=== PATIENT | female | born 2000 | race Caucasian/White ===

== ENCOUNTER 2021-12-29 11:03 | Emergency (ER) | payer SELFPAY ==
[~2021-12-29] VITALS: Ht 160 cm; Wt 81.6 kg
[2021-12-29 11:35] LABS: BILIRUBIN,URINE NEGATIVE (NEGATIVE); CLARITY,URINE SL CLOUDY; COLOR,URINE YELLOW; GLUCOSE, URINE (UA) NEGATIVE (NEGATIVE); KETONES,URINE NEGATIVE (NEGATIVE); LEUKOCYTE ESTERASE ,URINE TRACE (NEGATIVE); NITRITE,URINE NEGATIVE (NEGATIVE); PH,URINE 6.5 (5-9); PROTEIN,URINE NEGATIVE (NEGATIVE)
[2021-12-29 11:46] LABS: BACTERIA,URINE TRACE /HPF; RBC,URINE 0-2 /HPF; WBC,URINE RARE /HPF
--- NOTE | 2021-12-29 11:48 | ED GU-Female ---
General Chief Complaint: - Reproductive Stated Complaint: APPROX 7 WKS PREG/VAG BLEEDING Source: patient Exam Limitations: no limitations History of Present Illness Date Seen by Provider: December 29, 2021 Time Seen by Provider: 11:46 Initial Comments Patient is a 21-year-old female who presents ED with vaginal bleeding. She states her last menstrual cycle was end of October. She does take an oral contraceptive. She states she had a negative test 2 weeks ago. Started having some lower abdominal cramping yesterday. Few episodes of diarrhea. She reports frequent urination without dysuria. No vaginal discharge. Had a very small clot in very small amount of bright red tinge blood this morning. She has had 2 successful pregnancies in the past. She is unsure if she started her menstrual cycle or she is currently . Lower abdominal cramping has stayed the same without increasing pain or any radiation. She denies of any chest pain, vomiting, nausea, breast tenderness, shortness of breath, headache, dizziness, sore throat. She reports a mild cough since yesterday. Allergies and Home Medications Patient Home Medication List Home Medication List Reviewed: Yes Review of Systems Review of Systems Constitutional: No chills, No diaphoresis, No fever, No malaise, No weakness EENTM: No ear pain, No blurred vision, No double vision, No mouth pain, No mouth swelling, No throat pain, No throat swelling Respiratory: cough Cardiovascular: No edema Gastrointestinal: abdominal pain; No diarrhea, No nausea, No vomiting Musculoskeletal: No back pain, No joint pain, No muscle pain, No muscle stiffness Skin: No change in color, No change in hair/nails All Other Systemes Reviewed Negative Unless Noted: Yes Past Aokftff-Mghuzp-Tjsxif Hx Patient Social History Tobacco Use?: Yes Tobacco type used: Cigarettes Substance use?: No Alcohol Use?: No Pt feels they are or have been: No Physical Exam Vital Signs Vital Signs - First Documented 12/29/21 11:20 Temp 37.0 Pulse 89 Resp 16 B/P (MAP) 128/83 (98) O2 Delivery Room Air Capillary Refill : Height, Weight, BMI Height: '" Weight: lbs. oz. kg; BMI Method: General Appearance: WD/WN, no apparent distress HEENT: PERRL/EOMI, normal ENT inspection, TMs normal, pharynx normal Neck: non-tender, full range of motion, supple Cardiovascular: regular rate, rhythm, no edema, no gallop, no JVD Respiratory: chest non-tender, lungs clear, normal breath sounds, no respiratory distress, no accessory muscle use Gastrointestinal: normal bowel sounds, soft, no organomegaly, tenderness (Lower bilateral abdominal tenderness on palpation. 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, no motor/sensory deficits, alert, normal mood/affect Progress/Results/Core Measures Suspected Sepsis SIRS Temperature: Pulse: Respiratory Rate: Laboratory Tests 12/29/21 11:30: White Blood Count 6.8 Blood Pressure / Mean: Laboratory Tests 12/29/21 11:30: Creatinine 0.73, Platelet Count 260, Total Bilirubin 0.5 Results/Orders Lab Results Laboratory Tests Test 12/29/21 11:25 12/29/21 11:30 Range/Units Urine Color YELLOW Urine Clarity SL CLOUDY Urine pH 6.5 5-9 Urine Specific [place] 1.025 H 1.016-1.022 Urine Protein NEGATIVE NEGATIVE Urine Glucose (UA) NEGATIVE NEGATIVE Urine Ketones NEGATIVE NEGATIVE Urine Nitrite NEGATIVE NEGATIVE Urine Bilirubin NEGATIVE NEGATIVE Urine Urobilinogen 0.2 < = 1.0 MG/DL Urine Leukocyte Esterase TRACE H NEGATIVE Urine RBC (Auto) 3+ H NEGATIVE Urine RBC 0-2 /HPF Urine WBC RARE /HPF Urine Squamous Epithelial Cells 5-10 /HPF Urine Crystals NONE /LPF Urine Bacteria TRACE /HPF Urine Casts NONE /LPF Urine Mucus SMALL H /LPF Urine Culture Indicated NO Urine Test NEGATIVE NEGATIVE White Blood Count 6.8 4.3-11.0 10^3/uL Red Blood Count 4.96 3.80-5.11 10^6/uL Hemoglobin 14.3 11.5-16.0 g/dL Hematocrit 42 35-52 % Mean Corpuscular Volume 86 80-99 fL Mean Corpuscular Hemoglobin 29 25-34 pg Mean Corpuscular Hemoglobin Concent 34 32-36 g/dL Red Cell Distribution Width 13.6 10.0-14.5 % Platelet Count 260 130-400 10^3/uL Mean Platelet Volume 10.3 9.0-12.2 fL Immature Granulocyte % (Auto) 0 % Neutrophils (%) (Auto) 60 42-75 % Lymphocytes (%) (Auto) 29 12-44 % Monocytes (%) (Auto) 8 0-12 % Eosinophils (%) (Auto) 3 0-10 % Basophils (%) (Auto) 0 0-10 % Neutrophils # (Auto) 4.1 1.8-7.8 10^3/uL Lymphocytes # (Auto) 2.0 1.0-4.0 10^3/uL Monocytes # (Auto) 0.6 0.0-1.0 10^3/uL Eosinophils # (Auto) 0.2 0.0-0.3 10^3/uL Basophils # (Auto) 0.0 0.0-0.1 10^3/uL Immature Granulocyte # (Auto) 0.0 0.0-0.1 10^3/uL Sodium Level 143 135-145 MMOL/L Potassium Level 3.6 3.6-5.0 MMOL/L Chloride Level 107 98-107 MMOL/L Carbon Dioxide Level 21 21-32 MMOL/L Anion Gap 15 H 5-14 MMOL/L Blood Urea Nitrogen 11 7-18 MG/DL Creatinine 0.73 0.60-1.30 MG/DL Estimat Glomerular Filtration Rate 119 BUN/Creatinine Ratio 15 Glucose Level 97 70-105 MG/DL Calcium Level 9.4 8.5-10.1 MG/DL Corrected Calcium 9.1 8.5-10.1 MG/DL Total Bilirubin 0.5 0.1-1.0 MG/DL Aspartate Amino Transf (AST/SGOT) 16 5-34 U/L Alanine Aminotransferase (ALT/SGPT) 16 0-55 U/L Alkaline Phosphatase 57 40-136 U/L Total Protein 7.7 6.4-8.2 GM/DL Albumin 4.4 3.2-4.5 GM/DL Lipase 15 8-78 U/L My Orders Orders - ANTON COMBS Ua Culture If Indicated (12/29/21 11:19) Hcg,Qualitative Urine (12/29/21 11:19) Urine Bedside (12/29/21 11:22) Chlamydia Trachomatis Urine (12/29/21 11:26) Neis Rajendra Dna Urine Test (12/29/21 11:26) Cbc With Automated Diff (12/29/21 11:40) Comprehensive Metabolic Panel (12/29/21 11:40) Lipase (12/29/21 11:40) Vital Signs/I&O 12/29/21 11:20 Temp 37.0 Pulse 89 Resp 16 B/P (MAP) 128/83 (98) O2 Delivery Room Air Capillary Refill : Departure Communication (PCP) Patient presents ED for vaginal bleeding. Small clot with bright red tinge of blood this morning. Some lower abdominal cramping. Scheduled to start her menstrual cycle at this time. She missed her last menstrual cycle had a negative test 2 weeks ago. Bedside was negative. Urine was negative. Urinalysis negative for infection. She does report some frequent uri nation. Some lower abdominal cramping but does not appear in acute distress. Suprapubic tenderness. No vaginal discharge or concern for sexual transmitted infection. Patient lab work was otherwise unremarkable. Normal hemoglobin and white blood count. No right lower quadrant tenderness or right upper quadrant tenderness. She does not appear in acute distress. Rule out ectopic with negative . No surgical abdomen. Likely the start of her menstrual cycle. She is currently on oral contraceptives. Recommend anti- inflammatories for pain. If any worsening symptoms such as worsening pain, heavy abnormal bleeding to return back to ED for further evaluation. Follow-up outpatient with your primary care physician for further evaluation as needed. Impression Primary Impression: Vaginal bleeding Disposition: HOME, SELF-CARE Condition: Stable Departure-Patient Inst. Decision time for Depature: 12:09 Referrals: NO,LOCAL PHYSICIAN (PCP/Family) Primary Care Physician Patient Instructions: Absent or Irregular Periods Add. Discharge Instructions: Recommend Tylenol or ibuprofen for abdominal pain and cramping. If any worsening symptoms such as severe pain, abnormal heavy bleeding to return back to ED. follow-up with your PCP or Gynecology for further evaluation if menstrual cycles are not regulated. All discharge instructions reviewed with patient and/or family. Voiced understanding. ANTON COMBS December 29, 2021 11:48
[2021-12-29 11:54] LABS: BASOPHILS % (AUTO) 0 % (0-10); EOSINOPHILS # (AUTO) 0.2 10^3/uL (0.0-0.3); EOSINOPHILS % (AUTO) 3 % (0-10); HEMATOCRIT 42 % (35-52); HEMOGLOBIN 14.3 g/dL (11.5-16.0); LYMPHOCYTES % (AUTO) 29 % (12-44); MEAN CORPUSCULAR HEMOGLOBIN 29 pg (25-34); MEAN CORPUSCULAR HGB CONC 34 g/dL (32-36); MEAN CORPUSCULAR VOLUME 86 fL (80-99); MEAN PLATELET VOLUME 10.3 fL (9.0-12.2); MONOCYTES # (AUTO) 0.6 10^3/uL (0.0-1.0); MONOCYTES % (AUTO) 8 % (0-12); NEUTROPHILS # (AUTO) 4.1 10^3/uL (1.8-7.8); NEUTROPHILS % (AUTO) 60 % (42-75); PLATELET COUNT 260 10^3/uL (130-400); WHITE BLOOD COUNT 6.8 10^3/uL (4.3-11.0)
[2021-12-29 11:57] LABS: ALBUMIN 4.4 GM/DL (3.2-4.5); POTASSIUM 3.6 MMOL/L (3.6-5.0)
[2021-12-29 11:59] LABS: CALCIUM 9.4 MG/DL (8.5-10.1)
[2021-12-29 12:00] LABS: TOTAL PROTEIN 7.7 GM/DL (6.4-8.2)
[2021-12-29 12:02] LABS: BILIRUBIN,TOTAL 0.5 MG/DL (0.1-1.0)
[2021-12-29 12:03] LABS: CREATININE SERUM 0.73 MG/DL (0.60-1.30)
[2021-12-29 12:35] VITALS: BP 127/80
== END 2021-12-29 12:35 | disposition home or self-care (01) ==
LOC: EDUNIT# 11:03 → ER 11:06
DX: N93.9 Abnormal uterine and vaginal bleeding, unspecified (principal); F17.210 Nicotine dependence, cigarettes, uncomplicated; Z79.3 Long term (current) use of hormonal contraceptives; Z32.02 Encounter for pregnancy test, result negative
CPT/HCPCS: 36415; 80053; 81000; 83690; 84703; 85025; 87491; 87591; 99282